=== PATIENT | female | born 1940 | race African-American/Black ===

== ENCOUNTER 2024-05-19 00:55 | Inpatient (IN) | payer OTHER ==
[2024-05-19 01:53] LABS: BASO % 0.4 % (0-2.0); EOS % 0.6 % (0-4.5); HEMATOCRIT 36.6 % (32.4-45.2); HEMOGLOBIN 11.6 GM/dL (10.7-15.3); LYMPH % 7.6 % (8-40); MCH 27.5 pg (25.7-33.7); MCHC 31.8 g/dl (32.0-36.0); MEAN CELL VOLUME 86.5 fl (80-96); MEAN PLT VOLUME 11.2 fl (7.5-11.1); MONO % 4.9 % (3.8-10.2); NEUT % 86.5 % (42.8-82.8); PLATELET COUNT 144 10^3/uL (134-434); RBC 4.23 M/mm3 (3.60-5.2); RDW 15.8 % (11.6-15.6); WHITE BLOOD COUNT 14.7 K/mm3 (4.0-10.0)
[2024-05-19 02:12] LABS: CHLORIDE 100 mmol/L (98-107); SODIUM 132 mmol/L (136-145)
[2024-05-19 02:14] LABS: CALCIUM 8.5 mg/dL (8.5-10.1)
[2024-05-19 02:15] LABS: ALBUMIN 3.3 g/dl (3.4-5.0); ANION GAP 7 mmol/L (4-13); BLOOD UREA NITROGEN 27.3 mg/dL (7-18); CO2 26 mmol/L (21-32); GLUCOSE,RANDOM 132 mg/dL (74-106); POTASSIUM 8.1 mmol/L (3.5-5.1)
[2024-05-19 02:18] LABS: CREATININE 0.9 mg/dL (0.55-1.3); SGOT/AST 113 U/L (15-37); SGPT/ALT 31 U/L (13-61)
[2024-05-19 02:20] LABS: ALK PHOS 219 U/L (45-117); BILIRUBIN,TOTAL 0.4 mg/dL (0.2-1); TOT PROT 7.2 g/dl (6.4-8.2)
[2024-05-19 02:23] LABS: N-TERMINAL BNP 4837.4 pg/ml (5-450)
[2024-05-19] MEDS: ALBUTEROL SO4 2.5/IPRATROPIUM 0.5 INH SOL 3 ML VIAL.NEB. NEB SCH (02:34)
[2024-05-19] MEDS ORDERED: CEFTRIAXONE 1 GM/50 ML BAG ONE (02:48)
[2024-05-19] MEDS ORDERED: AZITHROMYCIN IVPB 500 MG/250 ML BAG IVPB ONE (02:49)
[2024-05-19] MEDS: CEFTRIAXONE 1 GM in DEXTROSE 5%-WATER - 100 ML IVPB ONE (03:08)
[2024-05-19 03:28] LABS: CALCIUM 8.9 mg/dL (8.5-10.1); POTASSIUM 5.4 mmol/L (3.5-5.1)
[2024-05-19 03:30] LABS: BLOOD UREA NITROGEN 27.9 mg/dL (7-18)
[2024-05-19 03:33] LABS: CREATININE 0.9 mg/dL (0.55-1.3)
[2024-05-19] MEDS: AZITHROMYCIN IVPB 500 MG in DEXTROSE 5%-WATER - 250 ML IVPB ONE (03:40)
[2024-05-19 08:36] LABS: BASO % 0.1 % (0-2.0); HEMATOCRIT 35.2 % (32.4-45.2); HEMOGLOBIN 11.4 GM/dL (10.7-15.3); LYMPH % 14.1 % (8-40); MCHC 32.4 g/dl (32.0-36.0); MEAN CELL VOLUME 86.3 fl (80-96); MEAN PLT VOLUME 11.6 fl (7.5-11.1); MONO % 2.2 % (3.8-10.2); NEUT % 83.6 % (42.8-82.8); PLATELET COUNT 131 10^3/uL (134-434); RBC 4.08 M/mm3 (3.60-5.2)
[2024-05-19 08:45] LABS: INR 1.48 (0.83-1.09); PROTHROMBIN TIME (PATIENT) 16.5 SEC (9.7-13.0)
[2024-05-19 09:02] LABS: POTASSIUM 4.6 mmol/L (3.5-5.1)
[2024-05-19 09:07] LABS: CALCIUM 9.2 mg/dL (8.5-10.1); MAGNESIUM 2.5 mg/dL (1.8-2.4)
[2024-05-19 09:10] LABS: CREATININE 0.9 mg/dL (0.55-1.3)
[2024-05-19 09:11] LABS: PHOSPHOROUS 3.5 mg/dL (2.5-4.9)
[2024-05-19] MEDS: ALLOPURINOL 300 MG TABLET (FP) PO SCH (09:34)
[2024-05-19] MEDS: FUROSEMIDE 40 MG/4 ML INJECTABLE VIAL IVPUSH ONE (09:34)
[2024-05-19] MEDS: MULTIVITAMINS THER W-MINERALS COMBO TABLET (FP) PO SCH (09:35)
[2024-05-19] MEDS: CHOLECALCIFEROL (VIT D3) 400 UNIT (10 MCG) TABLET PO SCH (09:35)
[2024-05-19] MEDS: POLYETHYLENE GLYCOL (HEALTHYLAX) 3350 17 GM PACKET PO SCH (09:35)
[2024-05-19] MEDS: ATORVASTATIN CA 40 MG TABLET (FP) PO SCH (09:35)
[2024-05-19] MEDS: PIPERACILLIN/TAZOB 4.5 GM 4.5 GM in DEXTROSE 5%-WATER 100 ML IVPB SCH (09:35)
[2024-05-19] MEDS: APIXABAN 2.5 MG TABLET PO SCH (09:53)
[2024-05-19] MEDS ORDERED: METOPROLOL TARTRATE 25 MG TABLET (FP) PO SCH (10:00)
[2024-05-19] MEDS ORDERED: SPIRONOLACTONE 25 MG TABLET PO SCH (10:00)
[2024-05-19] MEDS ORDERED: FUROSEMIDE 40 MG TABLET (FP) PO SCH (10:00)
[2024-05-19] MEDS ORDERED: ALBUTEROL SO4 HFA INHALER IH PRN (10:54)
[2024-05-19] MEDS: FUROSEMIDE 40 MG/4 ML INJECTABLE VIAL IVPUSH SCH (17:00)
[2024-05-19 17:01] LABS: BF WBC & OTHER NUCLEATED CELLS 517 /mm3
[2024-05-19 17:23] LABS: BODY FLUID MACROPHAGES 4 %; BODY FLUID MESOTHELIAL 1 %; BODY FLUID MONOCYTE 40 %
[2024-05-19] MEDS: MONTELUKAST NA 10 MG TABLET PO SCH (22:47)
[2024-05-19] MEDS: DOCUSATE SODIUM 100 MG CAPSULE (FP) PO SCH (22:48)
[2024-05-19] MEDS: MELATONIN 5 MG TABLETS PO SCH (22:48)
[2024-05-20] MEDS: LATANOPROST 0.005% OPHTH SOLN 2.5ML BOTTLE OU SCH (00:04)
[2024-05-20 02:05] LABS: EPI CELLS 3 /uL (0-25.1); HYALINE CASTS 0 /uL (0-3.1); PH,URINE 5.5 (5.0-8.0); URINE APPEARANCE CLEAR; URINE BACTERIA 4 /uL (0-1359); URINE BILIRUBIN NEGATIVE (NEGATIVE); URINE COLOR YELLOW; URINE GLUCOSE (UA) NEGATIVE (NEGATIVE); URINE KETONE NEGATIVE (NEGATIVE); URINE LEUK ESTERASE TRACE (NEGATIVE); URINE NITRITE NEGATIVE (NEGATIVE); URINE PROTEIN NEGATIVE (NEGATIVE); URINE RBC 5 /uL (0-23.9); URINE UROBILINOGEN 0.2 mg/dL (0.2-1.0); URINE WBC 5 /uL (0-25.8)
[2024-05-20] MEDS: PONATINIB HCL PO SCH (03:42)
[2024-05-20] MEDS: FUROSEMIDE 40 MG/4 ML INJECTABLE VIAL IVPUSH SCH (03:42)
[2024-05-20] MEDS: LEVOTHYROXINE NA 25 MCG TABLET (FP) PO SCH (06:48)
[2024-05-20 08:46] LABS: BASO % 0.2 % (0-2.0); EOS % 0.3 % (0-4.5); HEMATOCRIT 38.6 % (32.4-45.2); HEMOGLOBIN 12.5 GM/dL (10.7-15.3); MCH 27.9 pg (25.7-33.7); MCHC 32.3 g/dl (32.0-36.0); MEAN CELL VOLUME 86.3 fl (80-96); MEAN PLT VOLUME 11.2 fl (7.5-11.1); MONO % 7.1 % (3.8-10.2); NEUT % 74.4 % (42.8-82.8); PLATELET COUNT 130 10^3/uL (134-434); RBC 4.47 M/mm3 (3.60-5.2); RDW 15.8 % (11.6-15.6); WHITE BLOOD COUNT 15.1 K/mm3 (4.0-10.0)
[2024-05-20 09:05] LABS: POTASSIUM 4.5 mmol/L (3.5-5.1)
[2024-05-20 09:14] LABS: CALCIUM 8.9 mg/dL (8.5-10.1)
[2024-05-20 09:15] LABS: BLOOD UREA NITROGEN 31.2 mg/dL (7-18); MAGNESIUM 2.4 mg/dL (1.8-2.4)
[2024-05-20 09:18] LABS: CREATININE 1.1 mg/dL (0.55-1.3); PHOSPHOROUS 3.4 mg/dL (2.5-4.9)
[2024-05-20 09:21] LABS: TOT PROT 6.1 g/dl (6.4-8.2)
[2024-05-20] MEDS: PIPERACILLIN/TAZOB 4.5 GM 4.5 GM in DEXTROSE 5%-WATER 100 ML IVPB SCH ×3 (09:57→19:24)
[2024-05-20] MEDS: ACETAMINOPHEN 325 MG TABLET (FP) PO PRN (21:24)
[2024-05-21 09:36] LABS: BASO % 0.4 % (0-2.0); EOS % 2.1 % (0-4.5); HEMATOCRIT 39.3 % (32.4-45.2); HEMOGLOBIN 12.3 GM/dL (10.7-15.3); LYMPH % 17.9 % (8-40); MCH 27.4 pg (25.7-33.7); MCHC 31.4 g/dl (32.0-36.0); MEAN CELL VOLUME 87.4 fl (80-96); MEAN PLT VOLUME 10.4 fl (7.5-11.1); NEUT % 69.6 % (42.8-82.8); PLATELET COUNT 130 10^3/uL (134-434); RDW 15.6 % (11.6-15.6); WHITE BLOOD COUNT 11.2 K/mm3 (4.0-10.0)
[2024-05-21 09:53] LABS: POTASSIUM 3.5 mmol/L (3.5-5.1)
[2024-05-21 10:00] LABS: ALBUMIN 2.9 g/dl (3.4-5.0); BLOOD UREA NITROGEN 30.5 mg/dL (7-18); MAGNESIUM 2.4 mg/dL (1.8-2.4)
[2024-05-21 10:03] LABS: BILIRUBIN,TOTAL 0.7 mg/dL (0.2-1)
[2024-05-21 14:10] LABS: BODY FLUID ALBUMIN 2.1 g/dL (Not Estab.)
[2024-05-21] MEDS: BISACODYL 5 MG TABLET.DR (FP) PO ONE (14:29)
[2024-05-21 15:21] VITALS: BMI 23.8
[2024-05-21] MEDS: DOCUSATE SODIUM 100 MG CAPSULE (FP) PO SCH (22:21)
[2024-05-21] MEDS: POLYETHYLENE GLYCOL (HEALTHYLAX) 3350 17 GM PACKET PO SCH (22:22)
[2024-05-22 09:37] LABS: BASO % 0.2 % (0-2.0); EOS % 0.7 % (0-4.5); HEMOGLOBIN 11.9 GM/dL (10.7-15.3); LYMPH % 6.5 % (8-40); MCH 27.2 pg (25.7-33.7); MCHC 31.2 g/dl (32.0-36.0); MEAN CELL VOLUME 87.2 fl (80-96); MEAN PLT VOLUME 11.1 fl (7.5-11.1); MONO % 9.4 % (3.8-10.2); NEUT % 83.2 % (42.8-82.8); PLATELET COUNT 126 10^3/uL (134-434); RBC 4.36 M/mm3 (3.60-5.2); RDW 15.6 % (11.6-15.6); WHITE BLOOD COUNT 19.3 K/mm3 (4.0-10.0)
[2024-05-22 09:56] LABS: POTASSIUM 3.4 mmol/L (3.5-5.1)
[2024-05-22 09:58] LABS: CALCIUM 8.9 mg/dL (8.5-10.1)
[2024-05-22 09:59] LABS: ALBUMIN 2.9 g/dl (3.4-5.0); BLOOD UREA NITROGEN 31.3 mg/dL (7-18); MAGNESIUM 2.4 mg/dL (1.8-2.4)
[2024-05-22 10:03] LABS: BILIRUBIN,TOTAL 1.1 mg/dL (0.2-1); TOT PROT 5.8 g/dl (6.4-8.2)
[2024-05-22] MEDS: POTASSIUM CHLORIDE ORAL LIQUID 20 MEQ/15 ML PO ONE (10:53)
[2024-05-22 15:15] VITALS: RESP 20
[2024-05-22] MEDS: ATORVASTATIN CA 40 MG TABLET (FP) PO SCH (21:12)
[2024-05-23 09:06] LABS: BASO % 0.3 % (0-2.0); EOS % 2.9 % (0-4.5); HEMATOCRIT 34.6 % (32.4-45.2); LYMPH % 25.6 % (8-40); MCH 27.5 pg (25.7-33.7); MCHC 31.7 g/dl (32.0-36.0); MEAN CELL VOLUME 86.6 fl (80-96); MEAN PLT VOLUME 10.9 fl (7.5-11.1); MONO % 6.9 % (3.8-10.2); NEUT % 64.3 % (42.8-82.8); PLATELET COUNT 123 10^3/uL (134-434); RBC 3.99 M/mm3 (3.60-5.2); RDW 16.1 % (11.6-15.6); WHITE BLOOD COUNT 11.4 K/mm3 (4.0-10.0)
[2024-05-23 09:16] LABS: POTASSIUM 3.7 mmol/L (3.5-5.1)
[2024-05-23 09:21] LABS: CALCIUM 8.8 mg/dL (8.5-10.1)
[2024-05-23 09:22] LABS: ALBUMIN 2.7 g/dl (3.4-5.0); BLOOD UREA NITROGEN 35.1 mg/dL (7-18); MAGNESIUM 2.5 mg/dL (1.8-2.4)
[2024-05-23 09:25] LABS: CREATININE 1.1 mg/dL (0.55-1.3)
[2024-05-23 09:26] LABS: BILIRUBIN,TOTAL 0.6 mg/dL (0.2-1); TOT PROT 5.6 g/dl (6.4-8.2)
[2024-05-23] MEDS: POLYETHYLENE GLYCOL (HEALTHYLAX) 3350 17 GM PACKET PO SCH (13:38)
[2024-05-23 15:14] VITALS: BP 132/82; PULSE 75; TEMP 97.9
== END 2024-05-23 19:31 | DRG 193 ==
LOC: JER 00:55 → JERBED 02:41 → J8W 06:38
PROVIDERS: ADMIT Internal Medicine
PROC: 0W9B3ZZ Drainage of Left Pleural Cavity, Percutaneous Approach (ICD-10-PCS; principal; 2024-05-19)
DX: J18.9 Pneumonia, unspecified organism (principal); I50.33 Acute on chronic diastolic (congestive) heart failure; C92.10 Chronic myeloid leukemia, BCR/ABL-positive, not having achieved remission; J90 Pleural effusion, not elsewhere classified; I48.92 Unspecified atrial flutter; E44.0 Moderate protein-calorie malnutrition; E03.9 Hypothyroidism, unspecified; F03.90 Unspecified dementia, unspecified severity, without behavioral disturbance, psychotic disturbance, mood disturbance, and anxiety; E78.5 Hyperlipidemia, unspecified; G20.A1 Parkinson's disease without dyskinesia, without mention of fluctuations; Z68.24 Body mass index [BMI] 24.0-24.9, adult; K59.00 Constipation, unspecified; R13.10 Dysphagia, unspecified; I11.0 Hypertensive heart disease with heart failure
CPT/HCPCS: 36415; 71045-TC-FY; 71046-TC-FY; 71250-TC; 76942; 80048; 80053; 81003; 82042; 82150; 82465; 82945; 83615; 83735; 83880; 83986; 84100; 84157; 84478; 84484; 85025; 85610; 85651; 86140; 87070; 87075; 87081; 87086; 87102; 87116; 87205; 87206; 87210; 87899; 88108; 88305-TC; 93005; 93010; 93306-TC; 97116-GP; 97161-GP; 99285-25

== ENCOUNTER 2024-05-28 18:34 | Inpatient (IN) | payer OTHER ==
[2024-05-28] MEDS ORDERED: dilTIAZem HCL 125 MG/25 ML - 25 ML VIAL ONE (19:07)
[2024-05-28 19:20] LABS: BASO % 0.2 % (0-2.0); EOS % 0.2 % (0-4.5); HEMATOCRIT 38.6 % (32.4-45.2); HEMOGLOBIN 12.3 GM/dL (10.7-15.3); MCH 27.7 pg (25.7-33.7); MCHC 31.9 g/dl (32.0-36.0); MONO % 5.7 % (3.8-10.2); NEUT % 85.9 % (42.8-82.8); PLATELET COUNT 144 10^3/uL (134-434); RBC 4.44 M/mm3 (3.60-5.2); RDW 16.2 % (11.6-15.6); WHITE BLOOD COUNT 17.2 K/mm3 (4.0-10.0)
[2024-05-28 19:27] LABS: INR 2.01 (0.83-1.09); PROTHROMBIN TIME (PATIENT) 22.6 SEC (9.7-13.0)
[2024-05-28 19:29] LABS: ACTIVATED PTT 35.4 SECONDS (25.2-36.5)
[2024-05-28 19:37] LABS: POTASSIUM 4.3 mmol/L (3.5-5.1)
[2024-05-28 19:40] LABS: BLOOD UREA NITROGEN 27.5 mg/dL (7-18)
[2024-05-28 19:43] LABS: CREATININE 1.3 mg/dL (0.55-1.3)
[2024-05-28 19:45] LABS: BILIRUBIN,TOTAL 0.8 mg/dL (0.2-1); TOT PROT 6.9 g/dl (6.4-8.2)
[2024-05-28 19:49] LABS: ALBUMIN 3.3 g/dl (3.4-5.0); VENOUS BASE EXCESS 0.2 mmol/L (-2-2); VENOUS O2 SATURATION 83.8 % (70-80); VENOUS PCO2 50.5 mmHg (38-52); VENOUS PH 7.34 (7.310-7.410)
[2024-05-28] MEDS: dilTIAZem HCL 50 MG/10 ML - 10 ML VIAL IVPUSH ONE (19:50)
[2024-05-28 20:05] LABS: LACTIC ACID 2.5 mmol/L (0.4-2.0)
[2024-05-28] MEDS ORDERED: FUROSEMIDE 40 MG/4 ML INJECTABLE VIAL ONE (20:44)
[2024-05-28] MEDS: FUROSEMIDE 40 MG/4 ML INJECTABLE VIAL IVPUSH ONE (20:50)
[2024-05-28] MEDS ORDERED: dilTIAZem HCL 50 MG/10 ML - 10 ML VIAL ONE (21:31)
[2024-05-28 21:40] LABS: EPI CELLS 19 /uL (0-25.1); HYALINE CASTS 2 /uL (0-3.1); URINE APPEARANCE CLOUDY; URINE BACTERIA 9 /uL (0-1359); URINE BILIRUBIN 1+ (NEGATIVE); URINE COLOR DK YELLOW; URINE GLUCOSE (UA) NEGATIVE (NEGATIVE); URINE KETONE TRACE (NEGATIVE); URINE LEUK ESTERASE TRACE (NEGATIVE); URINE NITRITE NEGATIVE (NEGATIVE); URINE PROTEIN 2+ (NEGATIVE); URINE WBC 91 /uL (0-25.8)
[2024-05-28] MEDS: BUMETANIDE 0.25 MG/1 ML INJ. 10ML MULTI-DOSE VIAL IVPUSH ONE (22:18)
[2024-05-28 22:23] LABS: URINE RBC 29.6 /uL (0-23.9)
[2024-05-28 22:34] LABS: VENOUS BASE EXCESS -1.5 mmol/L (-2-2); VENOUS O2 SATURATION 33.9 % (70-80); VENOUS PH 7.207 (7.310-7.410)
[2024-05-28 22:41] LABS: VENOUS PCO2 72.2 mmHg (38-52)
[2024-05-28 23:04] LABS: LACTIC ACID 4.3 mmol/L (0.4-2.0)
[2024-05-28] MEDS: METOPROLOL TARTRATE 5 MG/5 ML VIAL IVPUSH ONE (23:05)
[2024-05-28] MEDS: PIPERACILLIN/TAZOB 3.375 GM 3.375 GM in DEXTROSE 5%-WATER - 50 ML IVPB ONE (23:31)
[2024-05-28] MEDS: dilTIAZem HCL 50 MG/10 ML - 10 ML VIAL IVPUSH STA (23:33)
[2024-05-29] MEDS ORDERED: ACETAMINOPHEN 325 MG TABLET (FP) PO PRN (00:57)
[2024-05-29] MEDS ORDERED: ALBUTEROL SO4 HFA INHALER IH PRN (00:57)
[2024-05-29 01:10] LABS: LACTIC ACID 3.7 mmol/L (0.4-2.0)
[2024-05-29] MEDS ORDERED: ACETAMINOPHEN INJECTION 100 ML ONE (01:14)
[2024-05-29] MEDS: ACETAMINOPHEN 1000 MG/100 ML BAG IVPB ONE (01:24)
[2024-05-29] MEDS: METOPROLOL TARTRATE 25 MG TABLET (FP) PO SCH (02:26)
[2024-05-29] MEDS: BUMETANIDE INJECTION 1 MG/4 ML VIAL IVPUSH SCH (04:53)
[2024-05-29] MEDS ORDERED: METOPROLOL TARTRATE 50 MG TABLET (FP) ONE (06:07)
[2024-05-29] MEDS ORDERED: CARBIDOPA/LEVODOPA 25/100 TABLET (FP) ONE (06:08)
[2024-05-29 06:12] LABS: BASO % 0.3 % (0-2.0); EOS % 0.1 % (0-4.5); HEMATOCRIT 37.8 % (32.4-45.2); HEMOGLOBIN 11.9 GM/dL (10.7-15.3); LYMPH % 13.3 % (8-40); MCH 27.6 pg (25.7-33.7); MCHC 31.4 g/dl (32.0-36.0); MEAN CELL VOLUME 87.9 fl (80-96); MONO % 4.7 % (3.8-10.2); NEUT % 81.6 % (42.8-82.8); PLATELET COUNT 108 10^3/uL (134-434); RBC 4.31 M/mm3 (3.60-5.2); WHITE BLOOD COUNT 14.9 K/mm3 (4.0-10.0)
[2024-05-29] MEDS: METOPROLOL TARTRATE 50 MG TABLET (FP) PO SCH (06:12)
[2024-05-29 06:25] LABS: INR 1.72 (0.83-1.09); PROTHROMBIN TIME (PATIENT) 19.5 SEC (9.7-13.0)
[2024-05-29 06:32] LABS: POTASSIUM 4.1 mmol/L (3.5-5.1)
[2024-05-29 06:35] LABS: ALBUMIN 3.2 g/dl (3.4-5.0); CALCIUM 9.1 mg/dL (8.5-10.1); MAGNESIUM 2.3 mg/dL (1.8-2.4)
[2024-05-29 06:38] LABS: CREATININE 1.2 mg/dL (0.55-1.3)
[2024-05-29 06:39] LABS: PHOSPHOROUS 4.3 mg/dL (2.5-4.9)
[2024-05-29 06:40] LABS: BILIRUBIN,TOTAL 0.7 mg/dL (0.2-1); TOT PROT 6.6 g/dl (6.4-8.2)
[2024-05-29 07:13] LABS: ARTERIAL BLD GAS O2 SATURATION 97.5 % (95-98); ARTERIAL BLOOD GAS BASE EXCESS 1.7 mmol/L (-2-2); ARTERIAL BLOOD GAS PO2 94.6 mmHg (80-100)
[2024-05-29 07:15] LABS: ALLENS TEST POSITIVE
[2024-05-29] MEDS ORDERED: SPIRONOLACTONE 25 MG TABLET PO SCH (10:00)
[2024-05-29] MEDS ORDERED: ATORVASTATIN CA 40 MG TABLET (FP) PO SCH (10:00)
[2024-05-29] MEDS ORDERED: FUROSEMIDE 40 MG TABLET (FP) PO SCH (10:00)
[2024-05-29] MEDS ORDERED: METOPROLOL TARTRATE 25 MG TABLET (FP) PO SCH ×2 (10:00)
[2024-05-29 10:22] LABS: LACTIC ACID 3.4 mmol/L (0.4-2.0)
[2024-05-29] MEDS: POLYETHYLENE GLYCOL (HEALTHYLAX) 3350 17 GM PACKET PO SCH (10:23)
[2024-05-29] MEDS: LEVOTHYROXINE NA 25 MCG TABLET (FP) PO SCH (10:23)
[2024-05-29] MEDS: CHOLECALCIFEROL (VIT D3) 400 UNIT (10 MCG) TABLET PO SCH (10:23)
[2024-05-29] MEDS: ALLOPURINOL 300 MG TABLET (FP) PO SCH (11:40)
[2024-05-29] MEDS: MULTIVITAMINS THER W-MINERALS COMBO TABLET (FP) PO SCH (11:40)
[2024-05-29] MEDS: ACETAMINOPHEN 1000 MG/100 ML BAG IVPB PRN (15:24)
[2024-05-29 15:40] LABS: LACTIC ACID 4.5 mmol/L (0.4-2.0)
[2024-05-29] MEDS: DOCUSATE SODIUM 100 MG CAPSULE (FP) PO SCH (21:06)
[2024-05-29] MEDS: MELATONIN 5 MG TABLETS PO SCH (21:06)
[2024-05-29] MEDS: MONTELUKAST NA 10 MG TABLET PO SCH (21:06)
[2024-05-29 21:09] LABS: LACTIC ACID 2.8 mmol/L (0.4-2.0)
[2024-05-29] MEDS: LATANOPROST 0.005% OPHTH SOLN 2.5ML BOTTLE OU SCH (22:09)
[2024-05-30] MEDS: METOPROLOL TARTRATE 50 MG TABLET (FP) PO SCH (06:26)
[2024-05-30 08:08] LABS: INR 1.61 (0.83-1.09); PROTHROMBIN TIME (PATIENT) 18.3 SEC (9.7-13.0)
[2024-05-30 08:15] LABS: BASO % 0.4 % (0-2.0); HEMATOCRIT 38.1 % (32.4-45.2); HEMOGLOBIN 12.2 GM/dL (10.7-15.3); LYMPH % 13.8 % (8-40); MCH 27.7 pg (25.7-33.7); MCHC 31.9 g/dl (32.0-36.0); MEAN CELL VOLUME 86.8 fl (80-96); MEAN PLT VOLUME 11.6 fl (7.5-11.1); MONO % 7.1 % (3.8-10.2); NEUT % 77.7 % (42.8-82.8); PLATELET COUNT 127 10^3/uL (134-434); RBC 4.38 M/mm3 (3.60-5.2); RDW 15.9 % (11.6-15.6); WHITE BLOOD COUNT 13.6 K/mm3 (4.0-10.0)
[2024-05-30 08:21] LABS: POTASSIUM 3.6 mmol/L (3.5-5.1)
[2024-05-30 08:25] LABS: CALCIUM 8.9 mg/dL (8.5-10.1)
[2024-05-30 08:26] LABS: ALBUMIN 2.8 g/dl (3.4-5.0); BLOOD UREA NITROGEN 32.8 mg/dL (7-18)
[2024-05-30 08:31] LABS: BILIRUBIN,TOTAL 0.6 mg/dL (0.2-1); TOT PROT 5.7 g/dl (6.4-8.2)
[2024-05-30 08:36] LABS: CREATININE 1.2 mg/dL (0.55-1.3)
[2024-05-30] MEDS: LIDOCAINE 5% TOPICAL PATCH TP SCH (11:02)
[2024-05-30] MEDS: LIDOCAINE PATCH REMOVAL MC SCH (22:42)
[2024-05-31 06:47] LABS: BASO % 0.5 % (0-2.0); EOS % 1.5 % (0-4.5); HEMATOCRIT 34.2 % (32.4-45.2); HEMOGLOBIN 10.6 GM/dL (10.7-15.3); LYMPH % 18.9 % (8-40); MCH 27.5 pg (25.7-33.7); MCHC 31.2 g/dl (32.0-36.0); MEAN CELL VOLUME 88.2 fl (80-96); MEAN PLT VOLUME 11.9 fl (7.5-11.1); MONO % 8.2 % (3.8-10.2); NEUT % 70.9 % (42.8-82.8); PLATELET COUNT 111 10^3/uL (134-434); RBC 3.87 M/mm3 (3.60-5.2); WHITE BLOOD COUNT 14.6 K/mm3 (4.0-10.0)
[2024-05-31 06:58] LABS: POTASSIUM 3.5 mmol/L (3.5-5.1)
[2024-05-31 07:00] LABS: ALBUMIN 2.7 g/dl (3.4-5.0); BLOOD UREA NITROGEN 35.4 mg/dL (7-18); CALCIUM 8.7 mg/dL (8.5-10.1)
[2024-05-31 07:01] LABS: MAGNESIUM 2.2 mg/dL (1.8-2.4)
[2024-05-31 07:06] LABS: BILIRUBIN,TOTAL 0.8 mg/dL (0.2-1); CREATININE 1.2 mg/dL (0.55-1.3); TOT PROT 5.5 g/dl (6.4-8.2)
[2024-05-31] MEDS: CEFTRIAXONE 1 GM in DEXTROSE 5%-WATER - 50 ML IVPB SCH (12:46)
[2024-05-31] MEDS: methylPREDNISolone NA SUCC 40 MG/1 ML VIAL IVPUSH SCH (13:00)
[2024-05-31] MEDS: AZITHROMYCIN IVPB 500 MG/250 ML BAG IVPB SCH (13:25)
[2024-05-31] MEDS: traMADol HCL 50 MG TABLET PO PRN (14:13)
[2024-06-01 07:28] LABS: HEMOGLOBIN 11.1 GM/dL (10.7-15.3); MCH 27.7 pg (25.7-33.7); MCHC 31.8 g/dl (32.0-36.0); MEAN CELL VOLUME 87.3 fl (80-96); MEAN PLT VOLUME 11.6 fl (7.5-11.1); PLATELET COUNT 124 10^3/uL (134-434); RBC 4.01 M/mm3 (3.60-5.2); RDW 15.8 % (11.6-15.6); WHITE BLOOD COUNT 15.4 K/mm3 (4.0-10.0)
[2024-06-01 07:52] LABS: BLOOD UREA NITROGEN 34.6 mg/dL (7-18); MAGNESIUM 2.3 mg/dL (1.8-2.4)
[2024-06-01 07:54] LABS: CREATININE 1.1 mg/dL (0.55-1.3)
[2024-06-01 07:56] LABS: BILIRUBIN,TOTAL 0.6 mg/dL (0.2-1); TOT PROT 6.3 g/dl (6.4-8.2)
[2024-06-01] MEDS: APIXABAN 2.5 MG TABLET PO SCH (21:20)
[2024-06-02 08:54] LABS: HEMATOCRIT 33.6 % (32.4-45.2); HEMOGLOBIN 10.7 GM/dL (10.7-15.3); MCH 27.5 pg (25.7-33.7); MCHC 31.7 g/dl (32.0-36.0); MEAN CELL VOLUME 86.7 fl (80-96); MEAN PLT VOLUME 11.9 fl (7.5-11.1); PLATELET COUNT 141 10^3/uL (134-434); RBC 3.88 M/mm3 (3.60-5.2); WHITE BLOOD COUNT 25.7 K/mm3 (4.0-10.0)
[2024-06-02 09:24] LABS: POTASSIUM 3.8 mmol/L (3.5-5.1)
[2024-06-02 09:25] LABS: CALCIUM 8.9 mg/dL (8.5-10.1)
[2024-06-02 09:26] LABS: BLOOD UREA NITROGEN 42.7 mg/dL (7-18); MAGNESIUM 2.2 mg/dL (1.8-2.4)
[2024-06-02 09:29] LABS: CREATININE 1.1 mg/dL (0.55-1.3)
[2024-06-02] MEDS: TORSEMIDE 20 MG TABLET (FP) PO SCH (10:44)
[2024-06-02] MEDS: METOPROLOL TARTRATE 50 MG TABLET (FP) PO SCH (21:36)
[2024-06-03 10:08] LABS: BASO % 0.5 % (0-2.0); EOS % 0.7 % (0-4.5); HEMATOCRIT 36.9 % (32.4-45.2); HEMOGLOBIN 11.6 GM/dL (10.7-15.3); LYMPH % 11.5 % (8-40); MCH 27.5 pg (25.7-33.7); MCHC 31.4 g/dl (32.0-36.0); MEAN CELL VOLUME 87.5 fl (80-96); MEAN PLT VOLUME 11.6 fl (7.5-11.1); MONO % 3.5 % (3.8-10.2); NEUT % 83.8 % (42.8-82.8); PLATELET COUNT 93 10^3/uL (134-434); RBC 4.22 M/mm3 (3.60-5.2); RDW 15.9 % (11.6-15.6); WHITE BLOOD COUNT 18.5 K/mm3 (4.0-10.0)
[2024-06-03 10:35] LABS: PLATELET ESTIMATE DECREASED
[2024-06-03 10:41] LABS: POTASSIUM 4.1 mmol/L (3.5-5.1)
[2024-06-03 10:46] LABS: CALCIUM 9.1 mg/dL (8.5-10.1)
[2024-06-03 10:47] LABS: BLOOD UREA NITROGEN 37.1 mg/dL (7-18)
[2024-06-03 10:50] LABS: CREATININE 0.9 mg/dL (0.55-1.3)
[2024-06-03] MEDS: ACETAMINOPHEN 325 MG TABLET (FP) PO PRN (22:09)
[2024-06-04 08:02] LABS: BASO % 0.3 % (0-2.0); EOS % 0.9 % (0-4.5); HEMATOCRIT 36.2 % (32.4-45.2); HEMOGLOBIN 11.3 GM/dL (10.7-15.3); LYMPH % 17.3 % (8-40); MCH 27.5 pg (25.7-33.7); MCHC 31.1 g/dl (32.0-36.0); MEAN CELL VOLUME 88.5 fl (80-96); NEUT % 75.5 % (42.8-82.8); PLATELET COUNT 136 10^3/uL (134-434); RBC 4.09 M/mm3 (3.60-5.2); RDW 15.8 % (11.6-15.6); WHITE BLOOD COUNT 18.4 K/mm3 (4.0-10.0)
[2024-06-04 08:18] LABS: POTASSIUM 4.2 mmol/L (3.5-5.1)
[2024-06-04 08:21] LABS: CALCIUM 8.6 mg/dL (8.5-10.1)
[2024-06-04 08:22] LABS: BLOOD UREA NITROGEN 38.1 mg/dL (7-18)
[2024-06-04 08:25] LABS: CREATININE 0.9 mg/dL (0.55-1.3)
[2024-06-05 08:10] LABS: HEMATOCRIT 34.5 % (32.4-45.2); HEMOGLOBIN 10.8 GM/dL (10.7-15.3); MCH 27.3 pg (25.7-33.7); MCHC 31.3 g/dl (32.0-36.0); MEAN CELL VOLUME 87.3 fl (80-96); MEAN PLT VOLUME 10.2 fl (7.5-11.1); PLATELET COUNT 159 10^3/uL (134-434); RBC 3.96 M/mm3 (3.60-5.2); RDW 15.9 % (11.6-15.6); WHITE BLOOD COUNT 15.6 K/mm3 (4.0-10.0)
[2024-06-05 08:30] LABS: POTASSIUM 4.2 mmol/L (3.5-5.1)
[2024-06-05 08:31] LABS: CALCIUM 8.7 mg/dL (8.5-10.1)
[2024-06-05 08:32] LABS: BLOOD UREA NITROGEN 33.9 mg/dL (7-18)
[2024-06-05 08:35] LABS: CREATININE 0.8 mg/dL (0.55-1.3)
[2024-06-05 22:38] VITALS: BMI 25.9
[2024-06-06 08:59] LABS: BASO % 0.2 % (0-2.0); EOS % 3.2 % (0-4.5); HEMOGLOBIN 11.6 GM/dL (10.7-15.3); LYMPH % 18.9 % (8-40); MCH 27.6 pg (25.7-33.7); MCHC 31.4 g/dl (32.0-36.0); MEAN CELL VOLUME 87.8 fl (80-96); MEAN PLT VOLUME 11.1 fl (7.5-11.1); MONO % 6.6 % (3.8-10.2); NEUT % 71.1 % (42.8-82.8); PLATELET COUNT 180 10^3/uL (134-434); RBC 4.21 M/mm3 (3.60-5.2); RDW 16.2 % (11.6-15.6)
[2024-06-06 09:13] LABS: POTASSIUM 4.4 mmol/L (3.5-5.1)
[2024-06-06 09:15] LABS: BLOOD UREA NITROGEN 32.1 mg/dL (7-18); CALCIUM 8.7 mg/dL (8.5-10.1)
[2024-06-06 09:19] LABS: CREATININE 0.8 mg/dL (0.55-1.3)
[2024-06-06] MEDS: ASCORBIC ACID 250 MG TABLET (FP) PO SCH (10:16)
[2024-06-06 11:46] VITALS: TEMP 98.6
[2024-06-06 16:14] VITALS: BP 118/64; PULSE 104; RESP 16
== END 2024-06-06 16:15 | DRG 291 ==
LOC: JER 18:34 → JERBED 20:12 → J4S 05-29 06:52
PROVIDERS: ADMIT Internal Medicine; ATTEND Nurse Practitioner
PROC: 0W9B30Z Drainage of Left Pleural Cavity with Drainage Device, Percutaneous Approach (ICD-10-PCS; principal; 2024-05-29)
DX: I11.0 Hypertensive heart disease with heart failure (principal); I50.33 Acute on chronic diastolic (congestive) heart failure; J96.02 Acute respiratory failure with hypercapnia; J96.21 Acute and chronic respiratory failure with hypoxia; I48.92 Unspecified atrial flutter; J90 Pleural effusion, not elsewhere classified; E87.1 Hypo-osmolality and hyponatremia; C34.90 Malignant neoplasm of unspecified part of unspecified bronchus or lung; I48.19 Other persistent atrial fibrillation; E87.20 Acidosis, unspecified; R04.2 Hemoptysis; E44.0 Moderate protein-calorie malnutrition; J44.9 Chronic obstructive pulmonary disease, unspecified; Z99.81 Dependence on supplemental oxygen; G20.A1 Parkinson's disease without dyskinesia, without mention of fluctuations; F02.80 Dementia in other diseases classified elsewhere, unspecified severity, without behavioral disturbance, psychotic disturbance, mood disturbance, and anxiety; Z68.25 Body mass index [BMI] 25.0-25.9, adult; M10.9 Gout, unspecified; D69.6 Thrombocytopenia, unspecified
CPT/HCPCS: 0241U-QW; 32550; 36415; 36600; 71045-TC-FY; 71250-TC; 80048; 80053; 81003; 82308; 82803; 83605; 83615; 83735; 83880; 84100; 84484; 85025; 85027; 85610; 85730; 86850; 86900; 86901; 87040; 87086; 93005; 93010; 94660; 97116-GP; 97161-GP; 99285-25; J0131